=== PATIENT | female | born 1995 | race Caucasian/White ===

== ENCOUNTER 2020-06-05 01:17 | Emergency (ER) | payer OTHER ==
[2020-06-05 02:16] LABS: HEMOGLOBIN 12.6 gm/dl (12.3-15.3); RED BLOOD COUNT 4.15 M/UL (4.00-5.10); WHITE BLOOD COUNT 9.1 K/UL (4.5-11.0)
[2020-06-05 02:50] LABS: BUN/CREATININE RATIO 21 (0-10)
[2020-06-05] MEDS ORDERED: LODINE CAP 300300 MG PO (02:55)
[2020-06-05] MEDS ORDERED: CEFUROXIME500 MG PO (02:55)
[2020-06-05] MEDS ORDERED: ZOFRAN ODT 4 MG4 MG PO (02:55)
== END 2020-06-05 03:54 | disposition home or self-care (01) ==
LOC: ER1 01:17
PROVIDERS: Physician Assistant
DX: N39.0 Urinary tract infection, site not specified (principal); R10.812 Left upper quadrant abdominal tenderness; Z88.0 Allergy status to penicillin; Z91.040 Latex allergy status; Z97.5 Presence of (intrauterine) contraceptive device; Z90.49 Acquired absence of other specified parts of digestive tract
CPT/HCPCS: 80053; 81001; 84703; 85025; 87077; 87086; 87186; 99284